=== PATIENT | female | born 1975 | race Caucasian/White ===

== ENCOUNTER → 2018-05-26 | Outpatient (CLI) | payer SELFPAY ==
[~2018-05-26] MED LIST: CALC600T63 PO; FEXO-72 PO; FLUC150T40 PO; MOM PO; OMEG-11 PO; OMEP-218 PO; POTA99TA6 PO; SULF-198 PO; VITA-175 PO
== END ==
LOC: LAB 15:22
PROVIDERS: ATTEND Obstetrics & Gynecology
DX: N89.8 Other specified noninflammatory disorders of vagina (principal)
CPT/HCPCS: 87210